=== PATIENT | female | born 1930 | race Caucasian/White ===

== ENCOUNTER 2018-12-18 15:34 | Inpatient (IN) | payer MEDICARE ==
--- NOTE | 2018-12-18 16:19 | C.PDOC ---
History Of Present Illness 88 y/o female, with history of hysterectomy, comes in for new onset of rectal bleeding for 1 day. Patient states she has had hemorrhoids for past 2-3 months but denies any rectal pain. She has not been previously evaluated for this complaint. Denies abdominal pain, recent weight loss, fever, nausea, or vomiting. Patient states there is no increased bleeding with bowel movement and it bleeds by itself and I have to wear pads. NEW ONSET RECTAL BLEED X 1 DAY. PS HAS HAD HEMORRHOIDS X 2-3 MONTHS BUT NO ASSOC RECTAL PAIN. NO PRIOR PMD EVAL FOR SAME. NO ABD PAIN, WT LOSS, FEVER, NV. PS NO INCR BLEEDING W BM "IT BLEEDS BY ITSELF AND I HAVE TO WEAR PADS". PSH HYST EXAM NONTOXIC NO PALLOR ABD NEG RECTAL NO EXT HEMORRHOIDS; CLOTS ALL OVER PERINEAL/RECTAL AREA. 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 NO GROSS BLEED REMAINDER NEG Time Seen by Provider: 12/18/18 15:45 Chief Complaint (Nursing): GI Problem History Per: Patient History/Exam Limitations: no limitations Onset/Duration Of Symptoms: Days Current Symptoms Are (Timing): Still Present Past Medical History Reviewed: Historical Data, Nursing Documentation, Vital Signs Vital Signs: Last Vital Signs Temp 98.5 F 12/18/18 15:41 Pulse 56 L 12/18/18 15:41 Resp 16 12/18/18 15:41 BP 175/83 H 12/18/18 15:41 Pulse Ox 100 12/18/18 15:41 - Medical History PMH: Depression, HTN, Hyperlipidemia Family History: States: No Known Family Hx - Social History Hx Alcohol Use: Yes Hx Substance Use: No - Immunization History Hx Tetanus Toxoid Vaccination: Yes Hx Influenza Vaccination: Yes Hx Pneumococcal Vaccination: Yes Review Of Systems Except As Marked, All Systems Reviewed And Found Negative. Constitutional: Negative for: Fever, Weight loss Gastrointestinal: Positive for: Other (Rectal bleeding). Negative for: Nausea, Vomiting, Abdominal Pain, Rectal Pain Physical Exam - Physical Exam Appears: Non-toxic, No Acute Distress Skin: Warm, Dry, No Pale Head: Atraumatic, Normacephalic Eye(s): bilateral: Normal Inspection Oral Mucosa: Moist Neck: Supple Cardiovascular: Rhythm Regular, No Murmur Respiratory: Normal Breath Sounds, No Rales, No Rhonchi, No Wheezing, Other (NARD) Gastrointestinal/Abdominal: Soft, No Tenderness, No Distention, No Guarding, No Rebound Rectal: Other (no external hemorrhoids; clots all over perineal/rectal area; no fissure) Pelvic: Other (No vaginal canal, unable to perform digital exam; no gross bleeding) Extremity: Bilateral: Normal Color And Temperature, Normal ROM Neurological/Psych: Oriented x3, Normal Speech, Normal Cognition ED Course And Treatment - Laboratory Results Result Diagrams: 12/18/18 16:38 12/18/18 16:38 O2 Sat by Pulse Oximetry: 100 (RA) Pulse Ox Interpretation: Normal - CT Scan/US Abd/Pel CT Other Rad Studies (CT/US): Read By Radiologist, Radiology Report Reviewed CT/US Interpretation: FINDINGS: LOWER THORAX: Heart is mildly enlarged. No evidence of pleural effusion. Mild atelectasis noted at the lung bases. LIVER: Mild hepatomegaly noted. No evidence of discrete mass in the liver. The portal vein is patent. GALLBLADDER AND BILE DUCTS: No evidence of acute cholecystitis or evidence of biliary tract obstruction. PANCREAS: The main pancreatic duct is mildly dilated. There is no evidence of mass lesion in the pancreas. SPLEEN: Unremarkable. ADRENALS: Dense of mass lesion in the adrenal glands. KIDNEYS AND URETERS: The kidneys enhance symmetrically without evidence of hydronephrosis. There is low-attenuation thin wall cyst at the midpole of the right kidney measures 3.5 centimeter. VASCULATURE: Unremarkable. No aortic aneurysm. Diffuse atherosclerotic calcification and foci of mural thickening noted in the abdominal aorta and iliac arteries. BOWEL: There mild diffuse wall thickening noted in the mid and distal small bowel loops. No evidence of high-grade bowel obstruction. There is moderate diffuse distal rectal and anal wall thickening noted. Correlate clinically for proctitis. The possibility of underlying neoplasm is not totally excluded. APPENDIX: There is no evidence of appendicitis. PERITONEUM: Unremarkable. No free fluid. No free air. LYMPH NODES: Mildly enlarged retroperitoneal lymph nodes are noted. There are also mildly enlarged bilateral inguinal lymph nodes. BLADDER: Mild urinary bladder wall thickening. REPRODUCTIVE: The uterus and adnexa are not visualized. BONES: No acute fracture. OTHER FINDINGS: None. IMPRESSION: Diffuse distal rectal and anus wall thickening suspicious for proctitis. The possibility of underline small neoplasm is not totally excluded. Distal small bowel wall thickening suspicious for enteritis. No evidence of obstructing mass lesion in the large bowel. Mildly enlarged retroperitoneal and bilateral inguinal lymph nodes. Mild urinary bladder wall thickening. Progress - Re-Evaluation Re-evaluation Note: 12/18/18 18:12 PERSIST RECTAL BLEED OOZING. NO RECTAL/ABD PAIN, VSS APPEARS COMFORTABLE. D/W DAUGHTER AND PT, ADVISED OF ER FINDINGS. D/W DR Migue HERRERA TRACTOR DISTRIBUTOR - Data Reviewed Data Reviewed: Lab, Diagnostic imaging, Old records Medical Decision Making Medical Decision Making: Plan: --Abd/Pel CT --Labs --UA Disposition Counseled Patient/Family Regarding: Studies Performed, Diagnosis - Disposition Disposition: HOSPITALIZED Disposition Time: 18:13 Condition: SERIOUS - POA Present On Arrival: None - Clinical Impression Clinical Impression: Rectal bleeding, Proctitis - Scribe Statement The provider has reviewed the documentation as recorded by the Sheri Dennis Provider Attestation: All medical record entries made by the Sheri were at my direction and personally dictated by me. I have reviewed the chart and agree that the record accurately reflects my personal performance of the history, physical exam, medical decision making, and the department course for this patient. I have also personally directed, reviewed, and agree with the discharge instructions and disposition.
[2018-12-18 16:41] LABS: BASO % 0.7 % (0.0-2.0); EOS # 0.1 K/uL (0.0-0.7); EOS % 1.2 % (0.0-4.0); HEMOGLOBIN 11.3 g/dL (11.0-16.0); LYMPH # 1.4 K/uL (1.0-4.3); LYMPH % 32.6 % (20.0-40.0); MEAN CORPUSCULAR HEMOGLOBIN 29.5 pg (27.0-31.0); MEAN CORPUSCULAR HGB CONC 32.4 g/dL (33.0-37.0); MEAN PLATELET VOLUME 7.8 fL (7.2-11.7); MONO # 0.5 K/uL (0.0-0.8); NEUT # 2.3 K/uL (1.8-7.0); NEUT % 53.5 % (50.0-75.0); NRBC % 0.1 % (0.0-2.0); RBC 3.82 Mil/uL (3.80-5.20); RED CELL DISTRIBUTION WIDTH 14.8 % (11.5-14.5); WHITE BLOOD COUNT 4.3 K/uL (4.8-10.8)
[2018-12-18] MEDS ORDERED: Iodixanol 320 MG/ML 100 ML BOTTLE IV ONE (16:46)
[2018-12-18 16:51] LABS: PROTHROMBIN TIME 11.1 SECONDS (9.7-12.2)
[2018-12-18 16:56] LABS: ALB/GLOB RATIO 1.2 (1.0-2.1); ALBUMIN 4.1 g/dL (3.5-5.0); ALT/SGPT 17 U/L (9-52); AST/SGOT 27 U/L (14-36); BLOOD UREA NITROGEN 16 mg/dL (7-17); CALCIUM 9.5 mg/dl (8.6-10.4); GFR NON-AFRICAN AMERICAN > 60
[2018-12-18 17:03] LABS: SQUAMOUS EPITHIAL 1 /hpf (0-5); URINE BACTERIA RARE (<OCC); URINE BILIRUBIN NEGATIVE (NEGATIVE); URINE BLOOD 3+ (NEGATIVE); URINE CLARITY Hazy (Clear); URINE COLOR Yellow (YELLOW); URINE GLUCOSE (UA) NORMAL (Normal); URINE LEUKOCYTE ESTERASE NEG Leu/uL (Negative); URINE PROTEIN 1+ mg/dL (NEGATIVE); URINE UROBILINOGEN NORMAL mg/dL (0.2-1.0)
--- NOTE | 2018-12-18 17:51 | CT ---
Date of service: 12/18/2018 PROCEDURE: CT Abdomen and Pelvis with contrast HISTORY: LOWER GI BLEED COMPARISON: None. TECHNIQUE: Contrast dose: 100 mL of Visipaque 320 intravenously. Radiation dose: Total exam DLP = 548.25 mGy-cm. This CT exam was performed using one or more of the following dose reduction techniques: Automated exposure control, adjustment of the mA and/or kV according to patient size, and/or use of iterative reconstruction technique. FINDINGS: LOWER THORAX: Heart is mildly enlarged. No evidence of pleural effusion. Mild atelectasis noted at the lung bases. LIVER: Mild hepatomegaly noted. No evidence of discrete mass in the liver. The portal vein is patent. GALLBLADDER AND BILE DUCTS: No evidence of acute cholecystitis or evidence of biliary tract obstruction. PANCREAS: The main pancreatic duct is mildly dilated. There is no evidence of mass lesion in the pancreas. SPLEEN: Unremarkable. ADRENALS: Dense of mass lesion in the adrenal glands. KIDNEYS AND URETERS: The kidneys enhance symmetrically without evidence of hydronephrosis. There is low-attenuation thin wall cyst at the midpole of the right kidney measures 3.5 centimeter. VASCULATURE: Unremarkable. No aortic aneurysm. Diffuse atherosclerotic calcification and foci of mural thickening noted in the abdominal aorta and iliac arteries. BOWEL: There mild diffuse wall thickening noted in the mid and distal small bowel loops. No evidence of high-grade bowel obstruction. There is moderate diffuse distal rectal and anal wall thickening noted. Correlate clinically for proctitis. The possibility of underlying neoplasm is not totally excluded. APPENDIX: There is no evidence of appendicitis. PERITONEUM: Unremarkable. No free fluid. No free air. LYMPH NODES: Mildly enlarged retroperitoneal lymph nodes are noted. There are also mildly enlarged bilateral inguinal lymph nodes. BLADDER: Mild urinary bladder wall thickening. REPRODUCTIVE: The uterus and adnexa are not visualized. BONES: No acute fracture. OTHER FINDINGS: None. IMPRESSION: Diffuse distal rectal and anus wall thickening suspicious for proctitis. The possibility of underline small neoplasm is not totally excluded. Distal small bowel wall thickening suspicious for enteritis. No evidence of obstructing mass lesion in the large bowel. Mildly enlarged retroperitoneal and bilateral inguinal lymph nodes. Mild urinary bladder wall thickening.
[2018-12-18] MEDS ORDERED: Piperacillin/Tazobact 3.375 gm 100 ML IV STA (18:16)
--- NOTE | 2018-12-18 18:25 | CP.PCM.HP ---
Past Patient History - Infectious Disease Hx of Infectious Diseases: None - Past Social History Smoking Status: Never Smoked - CARDIAC Hx Hypertension: Yes - PSYCHIATRIC Hx Depression: Yes Hx Substance Use: No - SURGICAL HISTORY Hx Surgeries: Yes - ANESTHESIA Hx Anesthesia: Yes Hx Anesthesia Reactions: No Meds Allergies/Adverse Reactions: Allergies Allergy/AdvReac Type Severity Reaction Status Date / Time No Known Allergies Allergy Verified 12/18/18 15:40 Results - Vital Signs Recent Vital Signs: Last Vital Signs Temp 98.5 F 12/18/18 15:41 Pulse 56 L 12/18/18 15:41 Resp 16 12/18/18 15:41 BP 175/83 H 12/18/18 15:41 Pulse Ox 100 12/18/18 18:25 - Labs Result Diagrams: 12/18/18 16:38 12/18/18 16:38 Labs: Laboratory Results - last 24 hr 12/18/18 12/18/18 12/18/18 16:38 16:38 16:38 WBC 4.3 L RBC 3.82 Hgb 11.3 Hct 34.8 MCV 91.0 MCH 29.5 MCHC 32.4 L RDW 14.8 H Plt Count 227 MPV 7.8 Neut % (Auto) 53.5 Lymph % (Auto) 32.6 [place] % (Auto) 12.0 H Eos % (Auto) 1.2 Baso % (Auto) 0.7 Neut # (Auto) 2.3 Lymph # (Auto) 1.4 [place] # (Auto) 0.5 Eos # (Auto) 0.1 Baso # (Auto) 0.0 PT 11.1 INR 1.0 APTT 28 Sodium 139 Potassium 4.0 Chloride 103 Carbon Dioxide 30 Anion Gap 11 BUN 16 Creatinine 0.8 Est GFR ( Amer) > 60 Est GFR (Non-Af Amer) > 60 Random Glucose 116 H Calcium 9.5 Total Bilirubin 0.6 AST 27 ALT 17 Alkaline Phosphatase 68 Total Protein 7.4 Albumin 4.1 Globulin 3.3 Albumin/Globulin Ratio 1.2 Urine Color Urine Clarity Urine pH Ur Specific [place] Urine Protein Urine Glucose (UA) Urine Ketones Urine Blood Urine Nitrate Urine Bilirubin Urine Urobilinogen Ur Leukocyte Esterase Urine RBC (Auto) Ur Squamous Epith Cells Urine Bacteria 12/18/18 16:45 WBC RBC Hgb Hct MCV MCH MCHC RDW Plt Count MPV Neut % (Auto) Lymph % (Auto) [place] % (Auto) Eos % (Auto) Baso % (Auto) Neut # (Auto) Lymph # (Auto) [place] # (Auto) Eos # (Auto) Baso # (Auto) PT INR APTT Sodium Potassium Chloride Carbon Dioxide Anion Gap BUN Creatinine Est GFR ( Amer) Est GFR (Non-Af Amer) Random Glucose Calcium Total Bilirubin AST ALT Alkaline Phosphatase Total Protein Albumin Globulin Albumin/Globulin Ratio Urine Color Yellow Urine Clarity Hazy Urine pH 5.0 Ur Specific [place] 1.017 Urine Protein 1+ H Urine Glucose (UA) Normal Urine Ketones Negative Urine Blood 3+ H Urine Nitrate Positive H Urine Bilirubin Negative Urine Urobilinogen Normal Ur Leukocyte Esterase Neg Urine RBC (Auto) 536 H Ur Squamous Epith Cells 1 Urine Bacteria Rare
[2018-12-18] MEDS ORDERED: Piperacill/Tazo 3.375gm in Dex 3.375 GM/50 ML BAG IVPB STA (18:29)
[2018-12-18] MEDS ORDERED: Piperacillin/Tazobact 3.375 gm 100 ML IVPB ONE (18:34)
[2018-12-18] MEDS ORDERED: metroNIDAZOLE IV 500 mg/100 ml 500 MG/100 ML BAG ONE (18:34)
[2018-12-18] MEDS: metroNIDAZOLE IV 500 mg/100 ml 500 MG/100 ML BAG IVPB SCH (19:02)
[2018-12-18] MEDS: Piperacill/Tazo 3.375gm in Dex 3.375 GM/50 ML BAG IVPB SCH (19:02)
[2018-12-19] MEDS: Piperacill/Tazo 3.375gm in Dex 3.375 GM/50 ML BAG IVPB SCH ×4 (01:09→18:26)
[2018-12-19] MEDS: metroNIDAZOLE IV 500 mg/100 ml 500 MG/100 ML BAG IVPB SCH ×3 (03:09→19:30)
--- NOTE | 2018-12-19 08:42 | CP.PCM.CON ---
History of Present Illness - History of Present Illness History of Present Illness: Asked by Dr. Ayala for a GI consultation on this patient. 88 year old female with history of cervical cancer, hyperlipidemia, depression who presents to hospital with complaint of sudden onset rectal bleeding which began 2 days ago. Prior to this she was in usual state of health. She reports having multiple episodes of bright red rectal bleeding with associated blood clot. She denies associated abdominal pain, nausea, vomiting, fever/chills, weight loss, or prior rectal bleeding. She denies recent constipation or straining during bowel movements. She had a colonoscopy nearly 8-10 years ago which was normal according to patient. Social history: non-smoker, social ETOH use Family history: reviewed, patient denies GI malignancies Review of Systems - Review of Systems Review of Systems: - All other comprehensive 12 point review of systems performed, negative - Cardiovascular Cardiovascular: absent: Acrocyanosis, Chest Pain, Chest Pain at Rest, Chest Pain with Activity, Claudication, Diaphoresis, Dyspnea, Dyspnea on Exertion, Edema, Irregular Heart Rhythm, Pain Radiating to Arm/Neck/Jaw, Leg Edema, Leg Ulcers, Lightheadedness, Orthopnea, Palpitations, Paroxysmal Nocturnal Dyspnea, Pedal Edema, Radiating Pain, Rapid Heart Rate, Slow Heart Rate, Syncope, Other - Respiratory Respiratory: absent: Cough, Dyspnea, Hemoptysis, Dyspnea on Exertion, Wheezing, Snoring, Stridor, Pain on Inspiration, Chest Congestion, Excessive Mucous Production, Change in Mucous Color, Pain with Coughing, Other - Gastrointestinal Gastrointestinal: Hematochezia - Musculoskeletal Musculoskeletal: absent: Abnormal Gait, Arthralgias, Atrophy, Back Pain, Deformity, Joint Swelling, Limited Range of Motion, Loss of Height, Muscle Cramps, Muscle Weakness, Myalgias, Neck Pain, Numbness, Radiating Pain into Limb, Stiffness, Tingling, Other - Neurological Neurological: absent: Abnormal Gait, Abnormal Hearing, Abnormal Movements, Abnormal Speech, Behavioral Changes, Burning Sensations, Confusion, Convulsions, Disequilibrium, Dizziness, Numbness, Focal Weakness, Frequent Falls, Headaches, Lack of Coordination, Loss of Vision, Memory Loss, Paresthesias, Radicular Pain, Restless Legs, Sensory Deficit, Syncope, Tingling, Tremor, Vertigo, Weakness, Other Visual Disturbances, Other Past Patient History - Infectious Disease Hx of Infectious Diseases: None - Past Medical History & Family History Past Medical History?: Yes - Past Social History Smoking Status: Never Smoked - CARDIAC Hx Cardiac Disorders: Yes Hx Hypertension: Yes - PULMONARY Hx Respiratory Disorders: No - NEUROLOGICAL Hx Neurological Disorder: No - HEENT Hx HEENT Problems: Yes Hx Cataracts: Yes (had them removed) - RENAL Hx Chronic Kidney Disease: No - ENDOCRINE/METABOLIC Hx Endocrine Disorders: No - HEMATOLOGICAL/ONCOLOGICAL Hx Blood Disorders: No - INTEGUMENTARY Hx Dermatological Problems: No - MUSCULOSKELETAL/RHEUMATOLOGICAL Hx Musculoskeletal Disorders: No Hx Falls: No - GASTROINTESTINAL Hx Gastrointestinal Disorders: No - GENITOURINARY/GYNECOLOGICAL Hx Genitourinary Disorders: No - PSYCHIATRIC Hx Psychophysiologic Disorder: Yes Hx Depression: Yes Hx Substance Use: No - SURGICAL HISTORY Hx Surgeries: Yes Hx Hysterectomy: Yes (partial) - ANESTHESIA Hx Anesthesia: Yes Hx Anesthesia Reactions: No Meds Allergies/Adverse Reactions: Allergies Allergy/AdvReac Type Severity Reaction Status Date / Time No Known Allergies Allergy Verified 12/18/18 15:40 - Medications Medications: Current Medications Bisacodyl (Dulcolax) 5 mg PO ONCE ONE Stop: 12/19/18 17:01 Metronidazole (Flagyl) 500 mg in 100 mls @ 100 mls/hr IVPB Q8H KASANDRA; Protocol Last Admin: 12/19/18 03:09 Dose: 100 mls/hr Piperacillin Sod/Tazobactam Sod (Zosyn 3.375 Gm Iv Premix) 3.375 gm in 50 mls @ 100 mls/hr IVPB Q6H KASANDRA; Protocol Last Admin: 12/19/18 06:10 Dose: 100 mls/hr Pantoprazole Sodium (Protonix Ec Tab) 40 mg PO DAILY KASANDRA Polyethylene Glycol/Electrolytes (Golytely) 4,000 ml PO ONCE ONE Stop: 12/19/18 12:01 Physical Exam - Constitutional Appears: Non-toxic, No Acute Distress - Head Exam Head Exam: NORMAL INSPECTION - Eye Exam Eye Exam: EOMI, Normal appearance - ENT Exam ENT Exam: Mucous Membranes Moist - Respiratory Exam Respiratory Exam: Clear to Auscultation Bilateral - Cardiovascular Exam Cardiovascular Exam: +S1, +S2 - GI/Abdominal Exam GI & Abdominal Exam: Normal Bowel Sounds, Soft Additional comments: non tender to palpation in four quadrants no palpable hepato/splenomegaly - Rectal Exam Additional comments: decreased anal sphincter tone presence of hard dark stool in rectal vault with associated fresh red blood mixed with clot - Extremities Exam Extremities exam: Positive for: normal inspection - Neurological Exam Neurological exam: Alert, CN II-XII Intact, Oriented x3, Reflexes Normal - Psychiatric Exam Psychiatric exam: Normal Affect, Normal Mood - Skin Skin Exam: Dry, Intact, Normal Color, Warm Results - Vital Signs Recent Vital Signs: Last Vital Signs Temp 97.7 F 12/18/18 23:30 Pulse 46 L 12/19/18 05:01 Resp 20 12/18/18 23:30 BP 145/56 L 12/18/18 23:30 Pulse Ox 97 12/18/18 23:30 - Labs Result Diagrams: 12/18/18 16:38 12/18/18 16:38 Labs: Laboratory Results - last 24 hr 12/18/18 12/18/18 12/18/18 16:38 16:38 16:38 WBC 4.3 L RBC 3.82 Hgb 11.3 Hct 34.8 MCV 91.0 MCH 29.5 MCHC 32.4 L RDW 14.8 H Plt Count 227 MPV 7.8 Neut % (Auto) 53.5 Lymph % (Auto) 32.6 [place] % (Auto) 12.0 H Eos % (Auto) 1.2 Baso % (Auto) 0.7 Neut # (Auto) 2.3 Lymph # (Auto) 1.4 [place] # (Auto) 0.5 Eos # (Auto) 0.1 Baso # (Auto) 0.0 PT 11.1 INR 1.0 APTT 28 Sodium 139 Potassium 4.0 Chloride 103 Carbon Dioxide 30 Anion Gap 11 BUN 16 Creatinine 0.8 Est GFR ( Amer) > 60 Est GFR (Non-Af Amer) > 60 Random Glucose 116 H Calcium 9.5 Total Bilirubin 0.6 AST 27 ALT 17 Alkaline Phosphatase 68 Total Protein 7.4 Albumin 4.1 Globulin 3.3 Albumin/Globulin Ratio 1.2 Urine Color Urine Clarity Urine pH Ur Specific [place] Urine Protein Urine Glucose (UA) Urine Ketones Urine Blood Urine Nitrate Urine Bilirubin Urine Urobilinogen Ur Leukocyte Esterase Urine RBC (Auto) Ur Squamous Epith Cells Urine Bacteria 12/18/18 16:45 WBC RBC Hgb Hct MCV MCH MCHC RDW Plt Count MPV Neut % (Auto) Lymph % (Auto) [place] % (Auto) Eos % (Auto) Baso % (Auto) Neut # (Auto) Lymph # (Auto) [place] # (Auto) Eos # (Auto) Baso # (Auto) PT INR APTT Sodium Potassium Chloride Carbon Dioxide Anion Gap BUN Creatinine Est GFR ( Amer) Est GFR (Non-Af Amer) Random Glucose Calcium Total Bilirubin AST ALT Alkaline Phosphatase Total Protein Albumin Globulin Albumin/Globulin Ratio Urine Color Yellow Urine Clarity Hazy Urine pH 5.0 Ur Specific [place] 1.017 Urine Protein 1+ H Urine Glucose (UA) Normal Urine Ketones Negative Urine Blood 3+ H Urine Nitrate Positive H Urine Bilirubin Negative Urine Urobilinogen Normal Ur Leukocyte Esterase Neg Urine RBC (Auto) 536 H Ur Squamous Epith Cells 1 Urine Bacteria Rare Assessment & Plan - Assessment and Plan (Free Text) Assessment: History of cervical cancer Hyperlipidemia Depression Rectal bleeding Plan: - Clear liquid diet as tolerated - H/H stable, continue to monitor - CT imaging reviewed by me showing rectal wall thickening, questionable proctitis - Given presence of fresh blood on rectal exam along with clinical picture and prior history of malignancy, will plan for colonoscopy to rule out associated neoplasm. Golytely bowel preparation today, NPO after midnight.
[2018-12-19 08:54] LABS: HEMOGLOBIN 10.6 g/dL (11.0-16.0); MEAN CORPUSCULAR HEMOGLOBIN 29.4 pg (27.0-31.0); MEAN CORPUSCULAR HGB CONC 32.7 g/dL (33.0-37.0); MEAN PLATELET VOLUME 8.4 fL (7.2-11.7); RBC 3.6 Mil/uL (3.80-5.20); RED CELL DISTRIBUTION WIDTH 14.1 % (11.5-14.5); WHITE BLOOD COUNT 3.2 K/uL (4.8-10.8)
[2018-12-19] MEDS: Pantoprazole 40 mg EC Tab PO SCH (09:40)
[2018-12-19 09:54] LABS: ALB/GLOB RATIO 1.2 (1.0-2.1); ALBUMIN 3.4 g/dL (3.5-5.0); ALT/SGPT 18 U/L (9-52); AST/SGOT 24 U/L (14-36); BLOOD UREA NITROGEN 13 mg/dL (7-17); GFR NON-AFRICAN AMERICAN > 60
[2018-12-19] MEDS ORDERED: Peg-Electrolyte Oral Soln 4L (Golytely) PO ONE (12:00)
[2018-12-19] MEDS ORDERED: Bisacodyl 5mg EC Tab PO ONE (17:00)
--- NOTE | 2018-12-19 19:25 | CP.PCM.PN ---
Subjective - Date & Time of Evaluation Date of Evaluation: 12/19/18 Time of Evaluation: 11:45 - Subjective Subjective: clinically same Objective - Vital Signs/Intake and Output Vital Signs (last 24 hours): Temp Pulse Resp BP Pulse Ox 97.8 F 65 20 107/52 L 96 12/19/18 15:00 12/19/18 16:00 12/19/18 15:00 12/19/18 15:00 12/19/18 15:00 Intake and Output: 12/19/18 12/20/18 18:59 06:59 Intake Total 340 Balance 340 - Medications Medications: Current Medications Metronidazole (Flagyl) 500 mg in 100 mls @ 100 mls/hr IVPB Q8H KASANDRA; Protocol Last Admin: 12/19/18 11:40 Dose: 100 mls/hr Piperacillin Sod/Tazobactam Sod (Zosyn 3.375 Gm Iv Premix) 3.375 gm in 50 mls @ 100 mls/hr IVPB Q6H KASANDRA; Protocol Last Admin: 12/19/18 18:26 Dose: 100 mls/hr Pantoprazole Sodium (Protonix Ec Tab) 40 mg PO DAILY KASANDRA Last Admin: 12/19/18 09:40 Dose: 40 mg - Labs Labs: 12/19/18 08:27 12/19/18 08:27 PT 11.1 SECONDS (9.7-12.2) 12/18/18 16:38 INR 1.0 12/18/18 16:38 APTT 28 SECONDS (21-34) 12/18/18 16:38 - Constitutional Appears: Well - Head Exam Head Exam: ATRAUMATIC, NORMAL INSPECTION, NORMOCEPHALIC - Eye Exam Eye Exam: EOMI, Normal appearance, PERRL Pupil Exam: NORMAL ACCOMODATION, PERRL - ENT Exam ENT Exam: Mucous Membranes Moist, Normal Exam - Neck Exam Neck Exam: Full ROM, Normal Inspection. absent: Lymphadenopathy - Respiratory Exam Respiratory Exam: Decreased Breath Sounds - Cardiovascular Exam Cardiovascular Exam: REGULAR RHYTHM, +S1, +S2 - GI/Abdominal Exam GI & Abdominal Exam: Soft, Diminished Bowel Sounds - Rectal Exam Rectal Exam: Deferred
[2018-12-20] MEDS: Piperacill/Tazo 3.375gm in Dex 3.375 GM/50 ML BAG IVPB SCH ×4 (00:51→18:36)
[2018-12-20] MEDS: metroNIDAZOLE IV 500 mg/100 ml 500 MG/100 ML BAG IVPB SCH ×3 (02:32→19:17)
[2018-12-20 08:29] LABS: HEMOGLOBIN 10.7 g/dL (11.0-16.0); MEAN CELL VOLUME 89.5 fL (81.0-99.0); MEAN CORPUSCULAR HEMOGLOBIN 29.3 pg (27.0-31.0); MEAN CORPUSCULAR HGB CONC 32.7 g/dL (33.0-37.0); MEAN PLATELET VOLUME 8.2 fL (7.2-11.7); RBC 3.66 Mil/uL (3.80-5.20); RED CELL DISTRIBUTION WIDTH 14.4 % (11.5-14.5); WHITE BLOOD COUNT 3.1 K/uL (4.8-10.8)
[2018-12-20 08:46] LABS: ALB/GLOB RATIO 1.2 (1.0-2.1); ALBUMIN 3.4 g/dL (3.5-5.0); ALT/SGPT 24 U/L (9-52); AST/SGOT 30 U/L (14-36); BLOOD UREA NITROGEN 9 mg/dL (7-17); CALCIUM 8.8 mg/dl (8.6-10.4); GFR NON-AFRICAN AMERICAN > 60
[2018-12-20] MEDS ORDERED: Lactated Ringer's 500 ML IV ONE ×2 (10:06)
[2018-12-20] MEDS ORDERED: Propofol 10 mg/ml Inj (20 ML) ONE (10:11)
[2018-12-20] MEDS: Pantoprazole 40 mg EC Tab PO SCH (12:32)
[2018-12-20 16:46] VITALS: RESP 20
[2018-12-20] MEDS ORDERED: Potassium Chloride 20 mEq ER Tab PO ONE (18:33)
--- NOTE | 2018-12-20 18:53 | CP.PCM.CON ---
History of Present Illness - History of Present Illness History of Present Illness: PGY-1 OB Consult note for Dr[address] Sumner HPI: Patient is an 88 year old female with a past medical history of cervical cancer s/p hysterectomy 30 years ago, HLD, and depression, admitted to the hospital for rectal bleeding. OB was consulted for possible vaginal bleeding. Patient states that she noticed drops of blood in the toilet when she was urinating today. However, she is unsure whether it is coming from her rectum or vagina. Patient had a colonoscopy this morning that showed internal hemorrhoids, diverticulosis, and two polyps which were removed. She denies fever, chills, dizziness, lightheadedness, chest pain, SOB, abdominal pain/cramps, diarrhea, constipation, or dysuria. Past Patient History - Infectious Disease Hx of Infectious Diseases: None - Past Medical History & Family History Past Medical History?: Yes - Past Social History Smoking Status: Never Smoked - CARDIAC Hx Cardiac Disorders: Yes Hx Hypertension: Yes - PULMONARY Hx Respiratory Disorders: No - NEUROLOGICAL Hx Neurological Disorder: No - HEENT Hx HEENT Problems: Yes Hx Cataracts: Yes (had them removed) - RENAL Hx Chronic Kidney Disease: No - ENDOCRINE/METABOLIC Hx Endocrine Disorders: No - HEMATOLOGICAL/ONCOLOGICAL Hx Blood Disorders: No - INTEGUMENTARY Hx Dermatological Problems: No - MUSCULOSKELETAL/RHEUMATOLOGICAL Hx Musculoskeletal Disorders: No Hx Falls: No - GASTROINTESTINAL Hx Gastrointestinal Disorders: No - GENITOURINARY/GYNECOLOGICAL Hx Genitourinary Disorders: No - PSYCHIATRIC Hx Psychophysiologic Disorder: Yes Hx Depression: Yes Hx Substance Use: No - SURGICAL HISTORY Hx Surgeries: Yes Hx Hysterectomy: Yes (partial) - ANESTHESIA Hx Anesthesia: Yes Hx Anesthesia Reactions: No Meds Allergies/Adverse Reactions: Allergies Allergy/AdvReac Type Severity Reaction Status Date / Time No Known Allergies Allergy Verified 12/18/18 15:40 - Medications Medications: Current Medications Metronidazole (Flagyl) 500 mg in 100 mls @ 100 mls/hr IVPB Q8H [facility]; Protocol Last Admin: 12/20/18 12:31 Dose: 100 mls/hr Piperacillin Sod/Tazobactam Sod (Zosyn 3.375 Gm Iv Premix) 3.375 gm in 50 mls @ 100 mls/hr IVPB Q6H [facility]; Protocol Last Admin: 12/20/18 18:36 Dose: 100 mls/hr Pantoprazole Sodium (Protonix Ec Tab) 40 mg PO DAILY [facility] Last Admin: 12/20/18 12:32 Dose: Not Given Physical Exam - Constitutional Appears: Well, Non-toxic, No Acute Distress - Head Exam Head Exam: ATRAUMATIC, NORMAL INSPECTION - Eye Exam Eye Exam: Normal appearance - ENT Exam ENT Exam: Mucous Membranes Moist - Respiratory Exam Respiratory Exam: Clear to Auscultation Bilateral, Respiratory Distress. absent: Rhonchi, Wheezes - Cardiovascular Exam Cardiovascular Exam: REGULAR RHYTHM, +S1, +S2. absent: Systolic Murmur - GI/Abdominal Exam GI & Abdominal Exam: Normal Bowel Sounds, Soft. absent: Tenderness - Extremities Exam Extremities exam: Positive for: normal inspection - Neurological Exam Neurological exam: Alert, Oriented x3 - Psychiatric Exam Psychiatric exam: Normal Affect, Normal Mood - Skin Skin Exam: Dry, Intact, Normal Color, Warm Results - Vital Signs Recent Vital Signs: Last Vital Signs Temp 98.1 F 12/20/18 15:44 Pulse 58 L 12/20/18 15:44 Resp 20 12/20/18 15:44 BP 116/63 12/20/18 15:44 Pulse Ox 95 12/20/18 15:44 - Labs Result Diagrams: 12/20/18 08:17 12/20/18 08:17 Labs: Laboratory Results - last 24 hr 12/20/18 12/20/18 08:17 08:17 WBC 3.1 L RBC 3.66 L Hgb 10.7 L Hct 32.7 L MCV 89.5 MCH 29.3 MCHC 32.7 L RDW 14.4 Plt Count 220 MPV 8.2 Sodium 140 Potassium 3.2 L Chloride 104 Carbon Dioxide 29 Anion Gap 11 BUN 9 Creatinine 0.8 Est GFR ( Amer) > 60 Est GFR (Non-Af Amer) > 60 Random Glucose 87 Calcium 8.8 Total Bilirubin 0.8 AST 30 ALT 24 Alkaline Phosphatase 54 Total Protein 6.2 L Albumin 3.4 L Globulin 2.8 Albumin/Globulin Ratio 1.2 Assessment & Plan - Assessment and Plan (Free Text) Assessment: Patient is an 88 year old female with a past medical history of cervical cancer s/p hysterectomy 30 years ago, HLD, and depression, admitted to the hospital for rectal bleeding. OB was consulted for possible vaginal bleeding. Plan: - Follow up pelvic ultrasound results - H&H stable - Patient is hemodynamically stable - Continue management as per medical team Patient seen and case discussed with Dr. Burak Roland, PGY-1
--- NOTE | 2018-12-20 20:29 | CP.PCM.PN ---
Subjective - Date & Time of Evaluation Date of Evaluation: 12/20/18 Time of Evaluation: 11:45 - Subjective Subjective: clinically same Objective - Vital Signs/Intake and Output Vital Signs (last 24 hours): Temp Pulse Resp BP Pulse Ox 98.1 F 70 20 116/63 95 12/20/18 15:44 12/20/18 20:00 12/20/18 15:44 12/20/18 15:44 12/20/18 15:44 Intake and Output: 12/20/18 12/21/18 18:59 06:59 Intake Total 300 Balance 300 - Medications Medications: Current Medications Metronidazole (Flagyl) 500 mg in 100 mls @ 100 mls/hr IVPB Q8H [facility]; Protocol Last Admin: 12/20/18 19:17 Dose: 100 mls/hr Piperacillin Sod/Tazobactam Sod (Zosyn 3.375 Gm Iv Premix) 3.375 gm in 50 mls @ 100 mls/hr IVPB Q6H [facility]; Protocol Last Admin: 12/20/18 18:36 Dose: 100 mls/hr Pantoprazole Sodium (Protonix Ec Tab) 40 mg PO DAILY [facility] Last Admin: 12/20/18 12:32 Dose: Not Given - Labs Labs: 12/20/18 08:17 12/20/18 08:17 PT 11.1 SECONDS (9.7-12.2) 12/18/18 16:38 INR 1.0 12/18/18 16:38 APTT 28 SECONDS (21-34) 12/18/18 16:38 - Constitutional Appears: Well - Head Exam Head Exam: ATRAUMATIC, NORMAL INSPECTION, NORMOCEPHALIC - Eye Exam Eye Exam: EOMI, Normal appearance, PERRL Pupil Exam: NORMAL ACCOMODATION, PERRL - ENT Exam ENT Exam: Mucous Membranes Moist, Normal Exam - Neck Exam Neck Exam: Full ROM, Normal Inspection. absent: Lymphadenopathy - Respiratory Exam Respiratory Exam: Decreased Breath Sounds - Cardiovascular Exam Cardiovascular Exam: REGULAR RHYTHM, +S1, +S2 - GI/Abdominal Exam GI & Abdominal Exam: Soft, Diminished Bowel Sounds - Rectal Exam Rectal Exam: Deferred
[2018-12-20] MEDS ORDERED: Potassium Chloride 20 mEq ER Tab PO STA (21:49)
[2018-12-21] MEDS: Piperacill/Tazo 3.375gm in Dex 3.375 GM/50 ML BAG IVPB SCH ×4 (00:25→18:34)
[2018-12-21] MEDS: metroNIDAZOLE IV 500 mg/100 ml 500 MG/100 ML BAG IVPB SCH ×3 (02:31→19:15)
[2018-12-21 08:03] LABS: HEMOGLOBIN 10.7 g/dL (11.0-16.0); MEAN CELL VOLUME 90.2 fL (81.0-99.0); MEAN CORPUSCULAR HEMOGLOBIN 29.6 pg (27.0-31.0); MEAN CORPUSCULAR HGB CONC 32.9 g/dL (33.0-37.0); RBC 3.61 Mil/uL (3.80-5.20); RED CELL DISTRIBUTION WIDTH 14.6 % (11.5-14.5); WHITE BLOOD COUNT 4.4 K/uL (4.8-10.8)
[2018-12-21 08:22] LABS: ALB/GLOB RATIO 1.2 (1.0-2.1); ALBUMIN 3.4 g/dL (3.5-5.0); ALT/SGPT 25 U/L (9-52); AST/SGOT 35 U/L (14-36); BLOOD UREA NITROGEN 8 mg/dL (7-17); CALCIUM 8.9 mg/dl (8.6-10.4); GFR NON-AFRICAN AMERICAN > 60
--- NOTE | 2018-12-21 09:24 | CP.PCM.PN ---
<Elina Perez - Last Filed: 12/21/18 09:21> Subjective - Date & Time of Evaluation Date of Evaluation: 12/21/18 Time of Evaluation: 09:21 - Subjective Subjective: Gastroenterology Fellow/PGY6 Progress Note Patient in no acute distress. Notes three loose bowel movement this morning. Denies further signs of bleeding with initial concern for rectal bleeding. No abdominal pain after colonoscopy yesterday. Tolerated diet yesterday. A 12-point review of systems negative except for as above. Objective - Vital Signs/Intake and Output Vital Signs (last 24 hours): Temp Pulse Resp BP Pulse Ox 98.0 F 56 L 20 135/76 97 12/21/18 07:00 12/21/18 07:00 12/21/18 07:00 12/21/18 07:00 12/21/18 07:00 Intake and Output: 12/21/18 12/21/18 06:59 18:59 Intake Total 820 Output Total 600 Balance 220 - Medications Medications: Current Medications Metronidazole (Flagyl) 500 mg in 100 mls @ 100 mls/hr IVPB Q8H [facility]; Protocol Last Admin: 12/21/18 02:31 Dose: 100 mls/hr Piperacillin Sod/Tazobactam Sod (Zosyn 3.375 Gm Iv Premix) 3.375 gm in 50 mls @ 100 mls/hr IVPB Q6H [facility]; Protocol Last Admin: 12/21/18 06:27 Dose: 100 mls/hr Pantoprazole Sodium (Protonix Ec Tab) 40 mg PO DAILY [facility] Last Admin: 12/20/18 12:32 Dose: Not Given - Labs Labs: 12/21/18 07:20 12/21/18 07:20 PT 11.1 SECONDS (9.7-12.2) 12/18/18 16:38 INR 1.0 12/18/18 16:38 APTT 28 SECONDS (21-34) 12/18/18 16:38 - Constitutional Appears: Non-toxic, No Acute Distress - Head Exam Head Exam: ATRAUMATIC, NORMOCEPHALIC - Eye Exam Eye Exam: EOMI, PERRL. absent: Scleral icterus Pupil Exam: PERRL. absent: Miosis, Mydriatic - ENT Exam ENT Exam: Mucous Membranes Moist, Normal Oropharynx - Neck Exam Neck Exam: Full ROM, Normal Inspection - Respiratory Exam Respiratory Exam: Clear to Ausculation Bilateral. absent: Rales, Rhonchi, Wheezes - Cardiovascular Exam Cardiovascular Exam: RRR, +S1, +S2. absent: Gallop, Rubs - GI/Abdominal Exam GI & Abdominal Exam: Soft, Normal Bowel Sounds. absent: Distended, Firm, G uarding, Rigid, Tenderness, Organomegaly, Rebound - Extremities Exam Extremities Exam: Normal Inspection. absent: Pedal Edema - Neurological Exam Neurological Exam: Alert, Awake - Psychiatric Exam Psychiatric exam: Normal Affect, Normal Mood - Skin Skin Exam: Dry, Intact, Normal Color, Warm Assessment and Plan - Assessment and Plan (Free Text) Assessment: 88 year old female with pMH of Cervical cancer s/p hysterectomy, HLD, HTN, and Depression presenting with concern for rectal bleeding. Post-op day 1 (12/20) colonoscopy showing arizmendi-diverticulosis, two sub-cm polyps removed, and internal hemorrhoids. Plan: -H/H stable -signs of blood loss withh clot on cintia-anal exam -no signs of active GI bleeding during colonoscopy -consider possible blood loss from genitourinary tract -ordered for pelvic U/S with history of cervical cancer -follow up U/S results -gynecology managing -continue regular diet -recommend stopping antibiotic therapy- no signs of colitis on exam -diarrhea likely antibiotic induced -will follow up colonoscopy pathology results <Bernardo Quispe - Last Filed: 12/21/18 09:35> Objective - Vital Signs/Intake and Output Vital Signs (last 24 hours): Temp Pulse Resp BP Pulse Ox 98.0 F 56 L 20 135/76 97 12/21/18 07:00 12/21/18 07:00 12/21/18 07:00 12/21/18 07:00 12/21/18 07:00 Intake and Output: 12/21/18 12/21/18 06:59 18:59 Intake Total 820 Output Total 600 Balance 220 - Medications Medications: Current Medications Metronidazole (Flagyl) 500 mg in 100 mls @ 100 mls/hr IVPB Q8H [facility]; Protocol Last Admin: 12/21/18 02:31 Dose: 100 mls/hr Piperacillin Sod/Tazobactam Sod (Zosyn 3.375 Gm Iv Premix) 3.375 gm in 50 mls @ 100 mls/hr IVPB Q6H [facility]; Protocol Last Admin: 12/21/18 06:27 Dose: 100 mls/hr Pantoprazole Sodium (Protonix Ec Tab) 40 mg PO DAILY [facility] Last Admin: 12/21/18 09:26 Dose: 40 mg - Labs Labs: 12/21/18 07:20 12/21/18 07:20 PT 11.1 SECONDS (9.7-12.2) 12/18/18 16:38 INR 1.0 12/18/18 16:38 APTT 28 SECONDS (21-34) 12/18/18 16:38 Attending/Attestation - Attestation I have personally seen and examined this patient.: Yes I have fully participated in the care of the patient.: Yes I have reviewed all pertinent clinical information, including history, physical exam and plan: Yes Notes (Text): 12/21/18 09:32 I have seen and examined patient with GI fellow. No acute events overnight, she is seen resting in bed comfortably. She had two loose bowel movements this morning, no presence of blood in stool. She denies abdominal pain, nausea, vomiting, fever/chills. Tolerating PO diet without difficulty. Review of vitals from today are normal. History of cervical cancer HTN Hyperlipidemia Rectal bleeding - s/p colonoscopy yesterday showing diverticulosis, colon polyps, small non bleeding hemorrhoids - Diet as tolerated - H/H stable, continue to monitor - Concern for possible vaginal bleeding given clinical scenario, follow up PARTS COUNTER SALES PERSON recommendations and pelvic US - Suggest discontinuing antibiotic therapy, no evidence of colitis on endoscopic evaluation from yesterday - Follow up colonoscopy biopsy results
[2018-12-21] MEDS: Pantoprazole 40 mg EC Tab PO SCH (09:26)
[2018-12-21] MEDS: Potassium Chloride 20 mEq ER Tab PO SCH ×2 (12:22→16:23)
--- NOTE | 2018-12-21 14:44 | CP.PCM.PN ---
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 Murcia Patient seen and examined at bedside. Patient states that she has not seen anymore blood with her bowel movements. She denies any vaginal discharge, vaginal bleeding, hematuria, or dysuria. She further denies dizziness, fevers, chills, shortness of breath, chest pain, abdominal pain, nausea, or vomiting. Objective - Vital Signs/Intake and Output Vital Signs (last 24 hours): Temp Pulse Resp BP Pulse Ox 98.0 F 56 L 20 135/76 97 12/21/18 07:00 12/21/18 07:00 12/21/18 07:00 12/21/18 07:00 12/21/18 07:00 Intake and Output: 12/21/18 12/21/18 06:59 18:59 Intake Total 820 Output Total 600 Balance 220 - Medications Medications: Current Medications Metronidazole (Flagyl) 500 mg in 100 mls @ 100 mls/hr IVPB Q8H [facility]; Protocol Last Admin: 12/21/18 10:36 Dose: 100 mls/hr Piperacillin Sod/Tazobactam Sod (Zosyn 3.375 Gm Iv Premix) 3.375 gm in 50 mls @ 100 mls/hr IVPB Q6H [facility]; Protocol Last Admin: 12/21/18 12:37 Dose: 100 mls/hr Pantoprazole Sodium (Protonix Ec Tab) 40 mg PO DAILY [facility] Last Admin: 12/21/18 09:26 Dose: 40 mg Potassium Chloride (K-Dur 20 Meq Er Tab) 40 meq PO Q4H [facility] Stop: 12/21/18 16:16 Last Admin: 12/21/18 12:22 Dose: 40 meq - Labs Labs: 12/21/18 07:20 12/21/18 07:20 PT 11.1 SECONDS (9.7-12.2) 12/18/18 16:38 INR 1.0 12/18/18 16:38 APTT 28 SECONDS (21-34) 12/18/18 16:38 - Constitutional Appears: Well, Non-toxic, No Acute Distress - Head Exam Head Exam: ATRAUMATIC, NORMAL INSPECTION - Eye Exam Eye Exam: Normal appearance - ENT Exam ENT Exam: Mucous Membranes Moist - Respiratory Exam Respiratory Exam: Clear to Ausculation Bilateral. absent: Wheezes, Respiratory Distress - Cardiovascular Exam Cardiovascular Exam: REGULAR RHYTHM, +S1, +S2. absent: Murmur - GI/Abdominal Exam GI & Abdominal Exam: Soft, Normal Bowel Sounds. absent: Tenderness - Exam Additional comments: Atrophic vagina, vaginal vault measuring 2cm- unable to advance speculum past 2 cm. No signs of bleeding. No palpable masses. - Neurological Exam Neurological Exam: Alert, Awake, Oriented x3 - Psychiatric Exam Psychiatric exam: Normal Affect, Normal Mood - Skin Skin Exam: Dry, Intact, Normal Color, Warm Assessment and Plan - Assessment and Plan (Free Text) Assessment: Patient is an 88 year old female with a past medical history of cervical cancer s/p hysterectomy and radiation 30 years ago, HLD, and depression, admitted to the hospital for rectal bleeding. OB-DINKING MACHINE OPERATOR was consulted for possible vaginal bleeding. Plan: - No signs of vaginal bleeding on exam, bleeding source unlikely to be vaginal in origin - Pelvic ultrasounds shows s/p hysterectomy, possible bilateral oophorectomy - Consider following up with a urologist to rule out bleeding from the bladder - Follow up with a editing intern after discharge - Educated patient the importance of having regular follow up with a editing intern given her history of cervical cancer Patient seen and case discussed with attending, Dr. Murcia. Adam Roland, PGY-1 <Kalyani Murcia A - Last Filed: 12/21/18 22:11> Objective - Vital Signs/Intake and Output Vital Signs (last 24 hours): Temp Pulse Resp BP Pulse Ox 98.2 F 57 L 20 114/62 98 12/21/18 15:00 12/21/18 15:00 12/21/18 15:00 12/21/18 15:00 12/21/18 15:00 Intake and Output: 12/21/18 12/22/18 18:59 06:59 Intake Total 730 Balance 730 - Medications Medications: Current Medications Metronidazole (Flagyl) 500 mg in 100 mls @ 100 mls/hr IVPB Q8H [facility]; Protocol Last Admin: 12/21/18 19:15 Dose: 100 mls/hr Piperacillin Sod/Tazobactam Sod (Zosyn 3.375 Gm Iv Premix) 3.375 gm in 50 mls @ 100 mls/hr IVPB Q6H [facility]; Protocol Last Admin: 12/21/18 18:34 Dose: 100 mls/hr Pantoprazole Sodium (Protonix Ec Tab) 40 mg PO DAILY [facility] Last Admin: 12/21/18 09:26 Dose: 40 mg Vancomycin HCl (Vancocin 250mg Capsule) 250 mg PO Q6 [facility] Last Admin: 12/21/18 19:00 Dose: 250 mg - Labs Labs: 12/21/18 07:20 12/21/18 07:20 PT 11.1 SECONDS (9.7-12.2) 12/18/18 16:38 INR 1.0 12/18/18 16:38 APTT 28 SECONDS (21-34) 12/18/18 16:38 Attending/Attestation - Attestation I have personally seen and examined this patient.: Yes I have fully participated in the care of the patient.: Yes I have reviewed all pertinent clinical information, including history, physical exam and plan: Yes Notes (Text): 12/21/18 21:55 This is a continuation of Nursing Teacher Consultation initiated by Dr. Renata Sumner 12/20/18 Patient was received in room 558A at approximately 1415 hours; her oldest samaria bauer was present during the entire encounter. Patient is an 88 y.o. P3, postmenopausal x >=30 years, S/P hysterectomy in her 60's (daughter made it clear she was menopausal prior to the surgery) for cervical cancer. Patient recalls undergoing radiation therapy x 5 weeks after surgery. Had had regular pleating machine operator follow up until her 70's "they just stopped seeing me". Patient states onset of heavy bleeding from the perineal region 12/17/18, "heavier than my period". Currently reports no bleeding since yesterday. S/P colonoscopy 12/20/18 noted for internal hemorrhoids and polyps which were biopsied. Rest of hstory and physical exam as per intake 12/20/18. During today's encounter, vaginal exam was performed to the best of my ability. Perineum: appropriately atrophic external female genitalia. No active bleeding noted. Attempt to insert small-sized speculum was aborted when it was not possible to do so. Using the 5th digit finger of my right hand, the vaginal vault was explored and noted to be constricted allowing only this examining finger to the level of the first knuckle, approximately 1 cm. No lesions were noted, no vaginal bleeding was noted. No external hemorrhoids were noted. It was discussed with the patient: bleeding most likely the result of internal hemorrhoids; and to follow up with the results of the biopsied polyps. It was also discussed, in light of history of cervical cancer, an evaluation by pleating machine operator as an outpatient should be considered. Lastly, an evaluation of the tract can be considered. Patient and daughter expressed an understanding; no questions offered. Thank you for the pleasure of this consultation
--- NOTE | 2018-12-21 15:08 | CP.PCM.PN ---
Subjective - Date & Time of Evaluation Date of Evaluation: 12/21/18 Time of Evaluation: 11:30 - Subjective Subjective: clinically same Objective - Vital Signs/Intake and Output Vital Signs (last 24 hours): Temp Pulse Resp BP Pulse Ox 98.0 F 56 L 20 135/76 97 12/21/18 07:00 12/21/18 07:00 12/21/18 07:00 12/21/18 07:00 12/21/18 07:00 Intake and Output: 12/21/18 12/21/18 06:59 18:59 Intake Total 820 730 Output Total 600 Balance 220 730 - Medications Medications: Current Medications Metronidazole (Flagyl) 500 mg in 100 mls @ 100 mls/hr IVPB Q8H [facility]; Protocol Last Admin: 12/21/18 10:36 Dose: 100 mls/hr Piperacillin Sod/Tazobactam Sod (Zosyn 3.375 Gm Iv Premix) 3.375 gm in 50 mls @ 100 mls/hr IVPB Q6H [facility]; Protocol Last Admin: 12/21/18 12:37 Dose: 100 mls/hr Pantoprazole Sodium (Protonix Ec Tab) 40 mg PO DAILY [facility] Last Admin: 12/21/18 09:26 Dose: 40 mg Potassium Chloride (K-Dur 20 Meq Er Tab) 40 meq PO Q4H [facility] Stop: 12/21/18 16:16 Last Admin: 12/21/18 12:22 Dose: 40 meq - Labs Labs: 12/21/18 07:20 12/21/18 07:20 PT 11.1 SECONDS (9.7-12.2) 12/18/18 16:38 INR 1.0 12/18/18 16:38 APTT 28 SECONDS (21-34) 12/18/18 16:38
--- NOTE | 2018-12-21 16:31 | US ---
Date of service: 12/20/2018 HISTORY: history of cervical cancer COMPARISON: None available. TECHNIQUE: Transabdominal. Transvaginal exam is incomplete patient not allowing or able to tolerate ultrasound probe insertion. FINDINGS: UTERUS: Nonvisualized-compatible with history of prior hysterectomy. ENDOMETRIUM: Not applicable CERVIX: Not clearly appreciated.-inferred as removed given the history RIGHT OVARY: Not visualized. LEFT OVARY: Not visualized. FREE FLUID: No significant free fluid noted. OTHER FINDINGS: None. IMPRESSION: Status post hysterectomy. Nonvisualized ovaries patient unsure of extent of any ovarian tissue removal if any. No ovaries identified on this exam.
[2018-12-21] MEDS ORDERED: Potassium Chloride 20 mEq ER Tab PO ONE (18:23)
[2018-12-21] MEDS: Vancomycin Hydrochloride 250 mg Capsule (Oral) PO SCH (19:00)
[2018-12-21] MEDS ORDERED: Potassium Chloride 20 mEq ER Tab PO STA (23:13)
[2018-12-22] MEDS: Vancomycin Hydrochloride 250 mg Capsule (Oral) PO SCH ×3 (01:19→11:44)
[2018-12-22] MEDS: Piperacill/Tazo 3.375gm in Dex 3.375 GM/50 ML BAG IVPB SCH ×3 (01:20→12:34)
[2018-12-22] MEDS: metroNIDAZOLE IV 500 mg/100 ml 500 MG/100 ML BAG IVPB SCH ×2 (03:29→11:43)
[2018-12-22 07:41] VITALS: BP 115/54; TEMP 98; O2SAT 95
[2018-12-22 08:44] VITALS: PULSE 59
[2018-12-22] MEDS: Pantoprazole 40 mg EC Tab PO SCH (10:00)
--- NOTE | 2018-12-22 11:00 | CP.PCM.PN ---
<Elina Perez - Last Filed: 12/22/18 10:56> Subjective - Date & Time of Evaluation Date of Evaluation: 12/22/18 Time of Evaluation: 10:56 - Subjective Subjective: astroenterology Fellow/PGY6 Progress Note Patient notes resolved diarrhea. Denies abdominal pain. tolerating regular diet. A 12-point review of systems negative except for as above. Objective - Vital Signs/Intake and Output Vital Signs (last 24 hours): Temp Pulse Resp BP Pulse Ox 98.0 F 59 L 20 115/54 L 95 12/22/18 07:00 12/22/18 08:39 12/22/18 07:00 12/22/18 07:00 12/22/18 07:00 Intake and Output: 12/22/18 12/22/18 06:59 18:59 Intake Total 250 Balance 250 - Medications Medications: Current Medications Metronidazole (Flagyl) 500 mg in 100 mls @ 100 mls/hr IVPB Q8H KASANDRA; Protocol Last Admin: 12/22/18 03:29 Dose: 100 mls/hr Piperacillin Sod/Tazobactam Sod (Zosyn 3.375 Gm Iv Premix) 3.375 gm in 50 mls @ 100 mls/hr IVPB Q6H KASANDRA; Protocol Last Admin: 12/22/18 06:37 Dose: 100 mls/hr Pantoprazole Sodium (Protonix Ec Tab) 40 mg PO DAILY [facility] Last Admin: 12/22/18 10:00 Dose: 40 mg Vancomycin HCl (Vancocin 250mg Capsule) 250 mg PO Q6 KASANDRA Last Admin: 12/22/18 06:36 Dose: 250 mg - Labs Labs: 12/21/18 07:20 12/21/18 07:20 PT 11.1 SECONDS (9.7-12.2) 12/18/18 16:38 INR 1.0 12/18/18 16:38 APTT 28 SECONDS (21-34) 12/18/18 16:38 - Constitutional Appears: Non-toxic, No Acute Distress - Head Exam Head Exam: ATRAUMATIC, NORMOCEPHALIC - Eye Exam Eye Exam: EOMI, PERRL. absent: Scleral icterus Pupil Exam: PERRL. absent: Miosis, Mydriatic - ENT Exam ENT Exam: Mucous Membranes Moist, Normal Oropharynx - Neck Exam Neck Exam: Full ROM, Normal Inspection - Respiratory Exam Respiratory Exam: Clear to Ausculation Bilateral. absent: Rales, Rhonchi, Wheezes - Cardiovascular Exam Cardiovascular Exam: RRR, +S1, +S2. absent: Gallop, Rubs - GI/Abdominal Exam GI & Abdominal Exam: Soft, Normal Bowel Sounds. absent: Distended, Firm, Guarding, Rigid, Tenderness, Organomegaly, Rebound - Extremities Exam Extremities Exam: Normal Inspection. absent: Pedal Edema - Neurological Exam Neurological Exam: Alert, Awake - Psychiatric Exam Psychiatric exam: Normal Affect, Normal Mood - Skin Skin Exam: Dry, Intact, Normal Color, Warm Assessment and Plan - Assessment and Plan (Free Text) Assessment: 88 year old female with pMH of Cervical cancer s/p hysterectomy, HLD, HTN, and Depression presenting with concern for rectal bleeding. Colonoscopy 12/20/18 showed arizmendi-diverticulosis, transverse sub-cm hyperplastic polyp, sigmoid sub-cm tubular adenoma, and internal hemorrhoids. Plan: -colonoscopy showed no signs of GI blood loss or colitis -recommend discontinuation of antibiotics with no signs of colitis or infectious diarrhea -consider possible blood loss from genitourinary tract -gynecology managing- follow up recommendations -pelvic U/S- no acute pathology noted -continue regular diet -Thank you for the opportunity to participate in the care of this patent. Please contact with questions or concerns <Bernardo Quispe - Last Filed: 12/22/18 12:20> Objective - Vital Signs/Intake and Output Vital Signs (last 24 hours): Temp Pulse Resp BP Pulse Ox 98.0 F 59 L 20 115/54 L 95 12/22/18 07:00 12/22/18 08:39 12/22/18 07:00 12/22/18 07:00 12/22/18 07:00 Intake and Output: 12/22/18 12/22/18 06:59 18:59 Intake Total 250 Balance 250 - Medications Medications: Current Medications Metronidazole (Flagyl) 500 mg in 100 mls @ 100 mls/hr IVPB Q8H KASANDRA; Protocol Last Admin: 12/22/18 11:43 Dose: 100 mls/hr Piperacillin Sod/Tazobactam Sod (Zosyn 3.375 Gm Iv Premix) 3.375 gm in 50 mls @ 100 mls/hr IVPB Q6H KASANDRA; Protocol Last Admin: 12/22/18 06:37 Dose: 100 mls/hr Pantoprazole Sodium (Protonix Ec Tab) 40 mg PO DAILY [facility] Last Admin: 12/22/18 10:00 Dose: 40 mg Vancomycin HCl (Vancocin 250mg Capsule) 250 mg PO Q6 [facility] Last Admin: 12/22/18 11:44 Dose: 250 mg - Labs Labs: 12/21/18 07:20 12/21/18 07:20 PT 11.1 SECONDS (9.7-12.2) 12/18/18 16:38 INR 1.0 12/18/18 16:38 APTT 28 SECONDS (21-34) 12/18/18 16:38 Attending/Attestation - Attestation I have personally seen and examined this patient.: Yes I have fully participated in the care of the patient.: Yes I have reviewed all pertinent clinical information, including history, physical exam and plan: Yes Notes (Text): 12/22/18 12:18 I have seen and examined patient with GI fellow. No acute events overnight, no recurrent rectal bleeding noted. She denies abdominal pain, nausea, vomiting, fever/chills. Tolerating PO diet without difficulty. 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 No further planned GI intervention, will sign off case, please reconsult as necessary. Thank you.
--- NOTE | 2018-12-22 22:32 | CP.PCM.PN ---
Subjective - Date & Time of Evaluation Date of Evaluation: 12/22/18 Objective - Vital Signs/Intake and Output Vital Signs (last 24 hours): Temp Pulse Resp BP Pulse Ox 98.0 F 59 L 20 115/54 L 95 12/22/18 07:00 12/22/18 08:39 12/22/18 07:00 12/22/18 07:00 12/22/18 07:00 - Labs Labs: 12/21/18 07:20 12/21/18 07:20 PT 11.1 SECONDS (9.7-12.2) 12/18/18 16:38 INR 1.0 12/18/18 16:38 APTT 28 SECONDS (21-34) 12/18/18 16:38
== END 2018-12-22 16:23 | disposition home or self-care (01) | DRG 394 ==
LOC: C.ER 15:34 → C.9E 18:16 → C.6T 18:59
PROVIDERS: ADMIT Internal Medicine Nephrology; ATTEND Internal Medicine Nephrology
PROC: 0DBL8ZZ Excision of Transverse Colon, Via Natural or Artificial Opening Endoscopic (ICD-10-PCS; 2018-12-20)
PROC: 0DBN8ZZ Excision of Sigmoid Colon, Via Natural or Artificial Opening Endoscopic (ICD-10-PCS; principal; 2018-12-20 10:11)
DX: K64.0 First degree hemorrhoids (principal); K52.1 Toxic gastroenteritis and colitis; D50.0 Iron deficiency anemia secondary to blood loss (chronic); D12.5 Benign neoplasm of sigmoid colon; K62.89 Other specified diseases of anus and rectum; D12.3 Benign neoplasm of transverse colon; I10 Essential (primary) hypertension; F32.9 Major depressive disorder, single episode, unspecified; Z85.41 Personal history of malignant neoplasm of cervix uteri; E78.5 Hyperlipidemia, unspecified; K57.30 Diverticulosis of large intestine without perforation or abscess without bleeding; T36.95XA Adverse effect of unspecified systemic antibiotic, initial encounter